=== PATIENT | female | born 1995 ===

== ENCOUNTER 2016-10-01 20:29 | Emergency (ER) | payer OTHER ==
[2016-10-01 21:00] VITALS: BP 132/71
--- NOTE | 2016-10-01 21:19 | UC ---
Throat Pain/Nasal Nik HPI - HPI Summary HPI Summary: Has had nasal congestion for about 2 weeks, then started getting sharp L-sided ST 4 days ago. Denies fever or vomiting. - History of Current Complaint Chief Complaint: UCGeneralIllness Stated Complaint: SORE THROAT Time Seen by Provider: 10/01/16 20:57 Hx Obtained From: Patient Hx Last Menstrual Period: 09/20/16 ?: No Onset/Duration: Gradual Onset, Lasting Days Cough: None Associated Signs & Symptoms: Positive: Nasal Discharge. Negative: Wheezing, Sinus Discomfort, Fever, Vomiting - Allergies/Home Medications Allergies/Adverse Reactions: Allergies Allergy/AdvReac Type Severity Reaction Status Date / Time No Known Allergies Allergy Verified 10/01/16 20:59 Home Medications: Home Medications Ibuprofen TAB* [Motrin TAB* 600 MG] 600 mg PO Q8H PRN 10/01/16 [History Confirmed 10/01/16] PMH/Surg Hx/FS Hx/Imm Hx Previously Healthy: Yes - Surgical History Surgical History: None - Family History Known Family History: Negative: Blood Disorder - Social History Occupation: Student Lives: Alone Alcohol Use: Occasionally Substance Use Type: None Smoking Status (MU): Never Smoked Tobacco Review of Systems Constitutional: Negative Skin: Negative Eyes: Negative ENT: Sore Throat, Nasal Discharge Respiratory: Negative Cardiovascular: Negative Gastrointestinal: Negative Genitourinary: Negative Motor: Negative Neurovascular: Negative Musculoskeletal: Negative Neurological: Negative Psychological: Negative All Other Systems Reviewed And Are Negative: Yes Physical Exam Triage Information Reviewed: Yes Appearance: Well-Appearing, No Pain Distress, Well-Nourished Vital Signs: Initial Vital Signs Temp 99.8 F 10/01/16 20:54 Pulse 80 10/01/16 20:54 Resp 17 10/01/16 20:54 BP 132/71 10/01/16 20:54 Pulse Ox 100 10/01/16 20:54 Vital Signs Reviewed: Yes Eye Exam: Normal Eyes: Positive: Conjunctiva Clear ENT: Positive: Hearing grossly normal, Nasal congestion, TMs normal, Other: - small aphthous ulcer on oropharynx. Negative: Tonsillar swelling, Tonsillar exudate Dental Exam: Normal Neck exam: Normal Neck: Positive: Supple, Nontender, No Lymphadenopathy Respiratory Exam: Normal Respiratory: Positive: Chest non-tender, Lungs clear, Normal breath sounds, No respiratory distress, No accessory muscle use Cardiovascular Exam: Normal Cardiovascular: Positive: RRR, No Murmur Musculoskeletal Exam: Normal Neurological Exam: Normal Neurological: Positive: Alert Psychological Exam: Normal Skin Exam: Normal Throat Pain/Nasal Course/Dx - Differential Dx/Diagnosis Provider Diagnoses: aphthous ulcer. Elevated blood pressure due to discomfort Discharge - Discharge Plan Condition: Stable Disposition: HOME Patient Education Materials: Canker Sores (ED) Additional Instructions: You have a sore throat from the aphthous ulcer in the back of your throat. This is probably not infectious and certainly not dangerous -- because yours is small , I expect it to resolve in about a week.
== END 2016-10-01 21:27 | disposition home or self-care (01) ==
LOC: UCCORT 20:29
DX: K12.0 Recurrent oral aphthae (principal); R03.0 Elevated blood-pressure reading, without diagnosis of hypertension; R09.81 Nasal congestion
CPT/HCPCS: 87651; 99201; G0463